=== PATIENT | female | born 1955 | race Caucasian/White ===

== ENCOUNTER 2016-08-13 22:06 | Emergency (ER) | payer OTHER ==
[~2016-08-13] VITALS: Ht 152.4 cm; Wt 66.7 kg
[~2016-08-13 22:06] MED LIST: ASPI81CT89 PO; LISI10TA11 PO; METF850T PO
[2016-08-13 22:19] VITALS: BP 154/71
--- NOTE | 2016-08-14 | NUR ---
PT TAKEN TO OF
--- NOTE | 2016-08-14 00:10 | NUR ---
PT TAKEN TO BED 5
--- NOTE | 2016-08-14 00:12 | NUR ---
Dr. Sanders evaluating patient at bedside.
[2016-08-14 00:30] VITALS: BP 154/71
== END 2016-08-14 00:30 | disposition home or self-care (01) ==
LOC: MED 22:06
DX: L03.116 Cellulitis of left lower limb (principal); E11.9 Type 2 diabetes mellitus without complications; I10 Essential (primary) hypertension
CPT/HCPCS: 99283